=== PATIENT | male | born 1950 | race American Indian/Alaskan Native ===

== ENCOUNTER 2018-05-17 05:55 | Day surgery (SDC) | payer OTHER ==
[~2018-05-17 05:55] MED LIST: LACTATED RINGERS 1,000 ML IV SCH
[2018-05-17] MEDS ORDERED: VERSED IV NR (06:00)
[2018-05-17] MEDS ORDERED: NEURONTIN PO NR (06:00)
[2018-05-17] MEDS ORDERED: MARCAINE-EPI 0.5%-1:200,000 INFILTRATI ONE (07:16)
[2018-05-17] MEDS ORDERED: SUBLIMAZE ONE (07:20)
[2018-05-17] MEDS ORDERED: DIPRIVAN 10 MG/ML IV ONE (07:20)
[2018-05-17] MEDS ORDERED: MARCAINE-EPI/PF 0.5%-1:200,000 INFILTRATI ONE ×2 (07:54)
[2018-05-17] MEDS ORDERED: NACL 0.9% IR ONE (07:54)
--- NOTE | 2018-05-17 07:57 | Anesthesia Consultation ---
Anesthesia Consult and Med Hx Date of service: 05/17/18 - Airway Anesthetic Teeth Evaluation: Dentures ROM Head & Neck: Adequate Mental/Hyoid Distance: Adequate Mallampati Class: Class II Intubation Access Assessment: Probably Good - Pulmonary Exam CTA: Yes - Cardiac Exam Cardiac Exam: RRR - Pre-Operative Health Status ASA Pre-Surgery Classification: ASA2 Proposed Anesthetic Plan: General - Pulmonary Hx Smoking: No Hx Respiratory Symptoms: No - Cardiovascular System Hx Hypertension: Yes Hx Heart Attack/AMI: No Hx Percutaneous Transluminal Coronary Angioplasty (PTCA): No - Central Nervous System CVA: No - Gastrointestinal Hx Gastroesophageal Reflux Disease: No - Endocrine Hx Renal Disease: No Hx Liver Disease: No Hx Insulin Dependent Diabetes: No Hx Non-Insulin Dependent Diabetes: No Hx Thyroid Disease: No - Other Systems Hx Alcohol Use: Yes (RARELY) Hx Obesity: No - Additional Comments Anesthesia Medical History Comments: No prior GA or FHx anesthetic complications.
[2018-05-17] MEDS ORDERED: DILAUDID IV PRN (07:58)
--- NOTE | 2018-05-17 07:58 | Anesthesia Day of Surgery ---
Anesthesia Day of Surgery - Day of Surgery Patient Examined: Yes Patient H&P Reviewed: Yes Patient is NPO: Yes
[2018-05-17] MEDS ORDERED: ceFAZolin 2 GM in NACL 0.9% 100 ML IV ONE (08:00)
[2018-05-17] MEDS ORDERED: ROBINUL ONE (08:31)
[2018-05-17] MEDS ORDERED: XYLOCAINE CARDIAC IV ONE (08:31)
[2018-05-17] MEDS ORDERED: ZEMURON IV ONE (08:31)
[2018-05-17] MEDS ORDERED: BREVIBLOC IV ONE (08:31)
[2018-05-17] MEDS ORDERED: NEO SYNEPHRINE ONE (08:31)
[2018-05-17] MEDS ORDERED: DECADRON ONE (08:31)
[2018-05-17] MEDS ORDERED: ZOFRAN ONE (08:31)
[2018-05-17] MEDS ORDERED: NORMODYNE IV ONE (08:31)
[2018-05-17] MEDS ORDERED: BLOXIVERZ ONE (08:31)
[2018-05-17] MEDS ORDERED: QUELICIN ONE (08:31)
--- NOTE | 2018-05-17 08:55 | Discharge Summary ---
Short Stay Discharge Plan Activity: other (observe x 4 hrs then june d/c if stable and able to void. ice pack R groin x 6 hrs. scrotal support x 3 days. keep dressings dry x 5 days. no lifting over 5 lbs x 3 wks) Diet: clear liquids (advance to solid high fiber diet as jorge luis) Wound: keep clean and dry Additional Instructions: surfak I po q am x 3. aleve I po q 6-8 hrs prn for breakthrough pain Follow up with: BRISEYDA MESSER MD [Staff Physician] - 7 Days
--- NOTE | 2018-05-17 09:23 | Operative Report ---
PREOPERATIVE DIAGNOSIS: Right inguinal hernia. POSTOPERATIVE DIAGNOSIS: Large direct right inguinal hernia. PROCEDURE: Open right inguinal hernia repair with mesh and also removal of lipoma of cord. SURGEON: Jez Theodore MD ANESTHESIA: General. ESTIMATED BLOOD LOSS: Minimal. DRAINS: No drains. COMPLICATIONS: No complications. DESCRIPTION OF PROCEDURE: The patient was taken up to the operating room, prepped and draped in usual sterile fashion. Incision was made using his landmarks anterior superior iliac spine and the pubic tubercle. Incision was carried down to the external oblique fascia. External oblique fascia was transected down to the external inguinal ring. The cord was then identified and isolated with a Hunker drain at the level of the pubic tubercle. Inspection of the cord region revealed a large lipoma of the cord, which was removed. The lipoma was then removed in entirety and sent as specimen. A careful inspection of the cord structures revealed no indirect hernia sac. However, large direct hernia was identified. The entire inguinal floor was basically obliterated and the femoral vessels were clearly visible and palpable. A preshaped keyhole Marlex mesh was then used to reconstruct the inguinal canal floor. The mesh was secured to the pubic tubercle area with a tacker. Medially, the mesh was secured to the transversalis fascia with Nurolon sutures laterally to the iliopubic tract. The area was then irrigated copiously and dried. Checked for hemostasis and noted to be dry. Cord structures were then on laid over the mesh. All cord structures including ilioinguinal nerve were identified and noted to be intact. External oblique fascia was closed over the cord with running 3-0 Vicryl suture. Subcutaneous tissues irrigated and skin closed with татьяна. 0.5% Marcaine with epinephrine was infiltrated over the fascia, subcutaneous, and skin for postoperative pain relief. Ilioinguinal nerve block was also performed. The patient tolerated the procedure well and left OR in stable condition. JOB# [id number] ARTIS/LOAN
[2018-05-17] MEDS ORDERED: NORMODYNE IV NR (09:26)
[2018-05-17 12:36] VITALS: BP 144/89
== END 2018-05-17 13:15 | disposition home or self-care (01) ==
LOC: OR 05:55
PROVIDERS: ATTEND Surgery
DX: K40.90 Unilateral inguinal hernia, without obstruction or gangrene, not specified as recurrent (principal); I10 Essential (primary) hypertension; Z72.89 Other problems related to lifestyle; Z98.890 Other specified postprocedural states; Z80.0 Family history of malignant neoplasm of digestive organs; Z79.899 Other long term (current) drug therapy
CPT/HCPCS: 49505; 88304; C1781; J0330; J1100; J1170; J2001; J2250; J2370; J2405; J2704; J2710; J3010; J7120

== ENCOUNTER 2018-09-18 05:59 | Day surgery (SDC) | payer OTHER, MEDICARE ==
[2018-09-18] MEDS ORDERED: NEURONTIN PO NR (06:00)
[2018-09-18] MEDS ORDERED: VERSED IV NR (06:00)
[2018-09-18] MEDS ORDERED: LACTATED RINGERS 1,000 ML IV SCH (06:00)
[2018-09-18] MEDS ORDERED: MARCAINE-EPI 0.5%-1:200,000 INFILTRATI ONE ×3 (06:49→07:44)
[2018-09-18] MEDS ORDERED: ANCEF/STERILE WATER 2 GM/20 ML IV NR (07:00)
[2018-09-18] MEDS ORDERED: DILAUDID IV PRN (07:11)
--- NOTE | 2018-09-18 07:13 | Anesthesia Day of Surgery ---
Anesthesia Day of Surgery - Day of Surgery Patient Examined: Yes Patient H&P Reviewed: Yes Patient is NPO: Yes
--- NOTE | 2018-09-18 07:13 | Anesthesia Consultation ---
Anesthesia Consult and Med Hx Date of service: 09/18/18 - Airway Anesthetic Teeth Evaluation: Dentures (upper) ROM Head & Neck: Adequate Mental/Hyoid Distance: Adequate Mallampati Class: Class III Intubation Access Assessment: Probably Good (previous easy intubation with MAC 4, 8.0 ETT) - Pulmonary Exam CTA: Yes - Cardiac Exam Cardiac Exam: RRR - Pre-Operative Health Status ASA Pre-Surgery Classification: ASA2 Proposed Anesthetic Plan: General - Pulmonary Hx Smoking: No Hx Respiratory Symptoms: No Hx Sleep Apnea: No (CEE PRE SCREEN HIGH RISK) - Cardiovascular System Hx Hypertension: Yes (took diltiazem this morning) Hx Heart Attack/AMI: No Hx Percutaneous Transluminal Coronary Angioplasty (PTCA): No Hx Cardia Arrhythmia: No - Central Nervous System Hx Seizures: No CVA: No Hx Psychiatric Problems: No - Gastrointestinal Hx Gastroesophageal Reflux Disease: No - Endocrine Hx Renal Disease: No Hx Liver Disease: No Hx Insulin Dependent Diabetes: No Hx Non-Insulin Dependent Diabetes: No Hx Thyroid Disease: No - Other Systems Hx Alcohol Use: Yes (RARELY) Hx Obesity: No - Additional Comments Anesthesia Medical History Comments: PONV with previous anesthetic.
[2018-09-18] MEDS ORDERED: XYLOCAINE MPF 2% ONE (07:19)
[2018-09-18] MEDS ORDERED: DIPRIVAN 10 MG/ML IV ONE (07:19)
[2018-09-18] MEDS ORDERED: ZEMURON IV ONE (07:19)
[2018-09-18] MEDS ORDERED: ceFAZolin 2 GM in NACL 0.9% 100 ML IV ONE (08:00)
[2018-09-18] MEDS ORDERED: TRANSDERM-SCOP TD NR (08:00)
[2018-09-18] MEDS ORDERED: TORADOL ONE (09:03)
[2018-09-18] MEDS ORDERED: ZOFRAN ONE (09:03)
[2018-09-18] MEDS ORDERED: ROBINUL ONE (09:03)
[2018-09-18] MEDS ORDERED: BLOXIVERZ ONE (09:03)
[2018-09-18] MEDS ORDERED: NACL 0.9% 1000 ML 1,000 ML ONE (09:07)
--- NOTE | 2018-09-18 09:07 | Discharge Summary ---
Short Stay Discharge Plan Activity: other (observe x 4 hrs. then june d/c if stable and able to void. ice pack L groin x 6 hrs. scrotal support x 3 days. no lifting over 5 lbs x 3 wks.) Diet: other (cl liq. advance to high fiber diet in am as jorge luis) Wound: keep clean and dry (x 5 days) Additional Instructions: surfak I po q am. x 3. aleve I po q 6-8 hrs prn for breakthrough pain Follow up with: BRISEYDA MESSER MD [Staff Physician] - 09/24/18
--- NOTE | 2018-09-18 10:26 | Operative Report ---
PREOPERATIVE DIAGNOSIS: Left inguinal hernia. POSTOPERATIVE DIAGNOSIS: Left inguinal hernia. PROCEDURES: 1. Open left inguinal hernia repair with mesh. 2. Removal of lipoma cord. SURGEON: Jez Theodore M.D. ANESTHESIA: General. ESTIMATED BLOOD LOSS: Minimal. DRAINS: None. COMPLICATIONS: None. DESCRIPTION OF PROCEDURE: The patient was taken to the operating room, prepped and draped in usual sterile fashion. Incision was made using his landmarks at the anterior superior iliac spine and pubic tubercle. Incision was carried down to the external oblique fascia. External oblique fascia was transected down to the external inguinal ring. Cord was then isolated with a Chacha drain at the level of the pubic tubercle. A large lipoma of the cord was identified, which was dissected free and sent as specimen. The rest of the cord was palpated and no indirect sac noted. Floor was very weak and consistent with large direct hernia. A pre-shaped keyhole Marlex mesh was then used to reconstruct the inguinal canal floor. The mesh was tacked inferiorly to the area of the pubic tubercle. Medially, the mesh was secured to the transversalis fascia and laterally to the iliopubic tract. The area was then irrigated copiously and dried. Checked for hemostasis and noted to be dry. The cord was then on laid over the mesh. All cord structures were visualized and palpated and noted to be intact. The external oblique fascia was closed over the cord with running 3-0 Vicryl suture. A 0.5% Marcaine with epinephrine was infiltrated over the fascia, subcutaneous, and skin for postoperative pain relief. Ilioinguinal nerve block was also performed. The patient tolerated the procedure well and left OR in stable condition. JOB# [id number] FP/NTS
--- NOTE | 2018-09-18 12:41 | Post Anesthesia Evaluation ---
- Post Anesthesia Evaluation Patient Participated: Yes Airway Patent: Yes Stable Respiratory Function: Yes Nausea/Vomiting: No Temp > 96.8F: Yes Pain Manageable: Yes Adequeate Hydration: Yes Anesthesia Complications: No
[2018-09-18 14:20] VITALS: BP 128/75
== END 2018-09-18 13:15 | disposition home or self-care (01) ==
LOC: OR 05:59
PROVIDERS: ATTEND Surgery
DX: K40.90 Unilateral inguinal hernia, without obstruction or gangrene, not specified as recurrent (principal); D17.6 Benign lipomatous neoplasm of spermatic cord; I10 Essential (primary) hypertension; Z72.89 Other problems related to lifestyle; Z98.890 Other specified postprocedural states; Z80.0 Family history of malignant neoplasm of digestive organs; Z79.899 Other long term (current) drug therapy
CPT/HCPCS: 49505; 88304; C1781; J0690; J1170; J1885; J2250; J2405; J2704; J2710; J7030; J7120